=== PATIENT | female | born 1935 | race Two or more races ===

== ENCOUNTER 2020-08-07 16:27 | Inpatient (IN) | payer OTHER ==
[~2020-08-07] VITALS: Ht 152.4 cm; Wt 72.6 kg
[~2020-08-07 16:27] MED LIST: AMLODIPINE BESYL5 MG; ATACAND4 MG PO; COREG CR10 MG; DIGOXIN125 MCG PO; FOLIC ACID1 MG; HUMIRA20 MG/0.4; LASIX20 MG; MAXIMUM D310000 UNIT; OMEPRAZOLE20 MG PO; PLAVIX75 MG; RAYOS5 MG; RESTORIL30 M1; TRAMADOL HCL-AP1 TAB PO
[2020-08-07] MEDS ORDERED: TOPROL XL25 M1 PO (16:47)
[2020-08-07] MEDS ORDERED: XARELTO15 MG PO (16:47)
[2020-08-07] MEDS ORDERED: K-TAB ER8 MEQ PO (16:48)
[2020-08-07] MEDS ORDERED: LASIX40 MG PO (16:48)
[2020-08-10] MEDS ORDERED: BUMETANIDE0.5 MG PO (14:44)
[2020-08-10] MEDS ORDERED: KLOR-CON M1010 MEQ PO (14:45)
== END 2020-08-10 15:46 | disposition home or self-care (01) | DRG 292 ==
LOC: ER 16:27 → MEDI 19:19 → MEDJ 19:19
PROVIDERS: ADMIT Internal Medicine; ATTEND Internal Medicine
PROC: 4A12X4Z Monitoring of Cardiac Electrical Activity, External Approach (ICD-10-PCS; 2020-08-07)
PROC: B24BZZZ Ultrasonography of Heart with Aorta (ICD-10-PCS; principal; 2020-08-08)
DX: I11.0 Hypertensive heart disease with heart failure (principal); I48.20 Chronic atrial fibrillation, unspecified; I50.33 Acute on chronic diastolic (congestive) heart failure; M06.9 Rheumatoid arthritis, unspecified; I42.5 Other restrictive cardiomyopathy